=== PATIENT | male | born 1985 | race Hispanic/Latino ===

== ENCOUNTER 2018-08-10 05:00 | Inpatient (IN) ==
[2018-08-10] MEDS ORDERED: ONDANSETRON 4 MG/2 ML VIAL IVP ONE ×2 (05:17→07:12)
[2018-08-10] MEDS ORDERED: Sodium Chloride 0.9% 1,000 ML PRIMARY IV ONE ×2 (05:17→07:31)
[2018-08-10] MEDS ORDERED: MORPHINE SULFATE 4 MG/1 ML IVP ONE ×2 (05:17→07:12)
--- NOTE | 2018-08-10 05:18 | PDOC ---
Abdomen/Flank HPI - General Chief Complaint: Abdomen Pain Stated Complaint: left lower abdominal pain Date Seen by Provider: 08/10/18 Time Seen by Provider: 05:11 Source: POSITIVE: Patient, Spouse Exam Limitations: POSITIVE: No limitations Nurse's Notes Reviewed & Considered: Yes - History of Present Illness Initial Comments: This is a well-developed, well-nourished, 32-year-old male, complaining of left lower quadrant abdominal pain. Patient developed left lower abdominal quadrant pain that has escalated and become significantly worse this morning with associated dysuria and pain in his left abdomen. He denies any headache, no sore throat, no runny nose, no chest pain or shortness of breath, no cough, no nausea vomiting or diarrhea, no hematuria, no rashes, no myalgias or arthralgias. Body Location Affected: REPORTS: Abdomen Timing: REPORTS: Gradual, Getting Worse Duration: <24 hours Severity: Severe Quality: REPORTS: "Pain" Abdominal Pain Onset Location: REPORTS: LLQ Abdominal Pain Radiation: REPORTS: LLQ Context: REPORTS: None Modifying Factors: improves with: Nothing Similar Symptoms Previously: No Recent Care Received: REPORTS: Denies Any Prior Injuries Related to Current Complaint?: No - Patient Home Medications Home Medications: Home Medications NK 08/10/18 - Patient Allergies Allergies/Adverse Reactions: Allergies Allergy/AdvReac Type Severity Reaction Status Date / Time No Known Allergies Allergy Verified 08/10/18 05:07 Past Medical History - heen HEENT History: Denies History Cardiovascular History: Denies History Respiratory History: Denies History Gastrointestinal History: Denies History Genitourinary History: Denies History Endocrine History: Denies History Musculoskeletal History: Denies History Neurological History: Denies History Blood Disorders: Denies History Psychiatric History: Denies History History of Sexually Transmitted Diseases: No Male Reproductive History: Denies History Cancer History: Denies History In Past Year Been Physically Harmed or Verbally Threatened: No History of MDRO: No History of Other Communicable Diseases: No Tobacco Use: Current Every Day Smoker In the Past 12 Months, Have Used or Abuse Any Substance: None Previous Surgical History: No Significant Family History: No pertinent family hx ROS - Limitations ROS Limitations: No Limitations Constitution: REPORTS: Denies Symptoms Cardiovascular: REPORTS: Denies Cardiac Symptoms Respiratory: REPORTS: Denies Resp Symptoms Neurological: REPORTS: Denies Neuro Symptoms Gastrointestinal: REPORTS: Abdominal Pain Endocrine: REPORTS: Denies Symptoms Musculoskeletal: REPORTS: Denies MS Symptoms Genitourinary: REPORTS: Dysuria Eyes: REPORTS: Denies Symptoms ENT: REPORTS: Denies Symptoms Skin: REPORTS: Denies Skin Symptoms Lympathic: REPORTS: Denies Lympathic Symptoms Immunologic: POSITIVE: Denies Symptoms Psychiatric: POSITIVE: Denies Psych Symptoms Abdominal/Flank Pain PE - General Appearance General Appearance: POSITIVE: Alert, Cooperative, No Evidence of Trauma, Mild Distress - HEENT HEENT: POSITIVE: Head Inspection Nml, Eyes Inspection Nml, Ears Inspection Nml, Nose Inspection Nml, Oral/Dental Inspect. Nml, Pharynx Inspect. Nml, PERRL, EOMI - Neck Neck: POSITIVE: Normal Inspection, No Apparent Injury - Respiratory Respiratory: POSITIVE: No Respiratory Distress, Breath Sounds Normal, Chest Non- Tender - Cardiovascular Cardiovascular: POSITIVE: Regular Rate and Rhythm, Heart Sounds Normal, Equal Pulses, Strong Pulses Peripheral Pulses: Radial (L): 4+ - Chest Chest: POSITIVE: Non Tender - Abdomen Abdomen: Soft: (All Quadrants), Normal Bowel Sounds: (All Quadrants), Denies Tenderness: (RLQ), (LUQ), (RUQ), No Splenomegaly: (All Quadrants), No Hepatomegaly: (All Quadrants), No Guarding: (RLQ), (LUQ), (RUQ), No Rebound: (All Quadrants), No Palpable Pulse: (All Quadrants), No Palpabale Mass: (All Quadrants), No Distention: (All Quadrants), No Rigidity: (All Quadrants), Tenderness Noted: (LLQ), Guarding: (LLQ) - Back Back: POSITIVE: Normal Inspection - Skin Skin: POSITIVE: Intact, Normal For Race, Warm, Dry, No Rash - Extremities Extremity: Non-Tender: (All Extremities), Normal ROM: (All Extremities), Normal Inspection: (All Extremities), Pelvis Stable: (All Extremities) - Neurological Neurological: POSITIVE: Affect Apporpriate, Oriented X3, Motor Normal, Sensation Normal - Psychological Psychiatric: POSITIVE: Affect Appropriate, Mood Appropriate Abdomen Progress - Results Reviewed by me Xrays/CTs/US Reviewed by me: Yes Discussed with Radiologist: Yes Lab Results Reviewed by Me: Yes CBC and BMP: 08/10/18 05:10 08/10/18 05:10 - Patient's Progress Pain Medication Addressed: POSITIVE: Yes Re-examine Time: 07:13 Status: POSITIVE: Improved MDM / ED Course: Patient was evaluated, an IV started, blood drawn and sent to the lab for studies, CT examination of his abdomen was obtained. Findings: CBC shows white count of 14.16 with hemoglobin and hematocrit and platelets being normal. CMP is normal. CRP is elevated at 7.6. ESR is normal at 10. Magnesium is normal at 1.9. Gamma GT is normal at 48. Urinalysis is negative. Amylase is [address] and lip[address] is 44. CT scan shows sigmoid diverticulitis with microperforation and severe inflammatory changes there is a small amount of free fluid in the pelvis. Assessment: Diverticulitis with microperforation Plan: Patient being admitted by Dr. Mccauley, the on-call surgeon who will see the patient on the floor. He is started on ertapenem with morphine and Zofran. I have put holding orders on him for the 4 to be nothing by mouth, morphine 4 mg every 30 minutes when necessary to 3 doses and Zofran 4 mg every 30 minutes when necessary to 3 doses. For this to contact the provider if he has systolic pressures less than 110 or greater than 160. - Consult Consult (If Yes, Name of Consulting MD & Time Called): Yes (DR. Mccauley) Consulting MD will see pt:: [place] [facility] [place] Counseled: POSITIVE: Patient, Family, RE: Lab Results, RE: Radiology Results, RE: DX, RE: Need for F/U Patient Care Time - Estimated PCT Patient Care Time (In Minutes): 45 Vital Signs - VS Reviewed Vital Signs Reviewed: Yes Discharge Clinical Impression: Abdominal pain, Perforation of sigmoid colon due to diverticulitis Discharge Disposition: Admit to Inpatient Condition: Stable Patient Instructions Given at Discharge: Diverticulitis (ED), Acute Abdominal Pain (ED) Follow Up With: NONE,NONE [Primary Care Provider] - Date Decision to Admit to Inpatient: 08/10/18 Time Decision to Admit to Inpatient: 07:17
[2018-08-10 05:22] LABS: BASOPHILS # (AUTO) 0.02 10*3/UL; BASOPHILS % (AUTO) 0.1 % (0-1); EOSINOPHILS # (AUTO) 0.09 10*3/UL; EOSINOPHILS % (AUTO) 0.6 % (0-8); Hematocrit [HCT] 46.2 % (42.0-52.0); Hemoglobin [HGB] 15.8 g/dL (14.0-18.0); LYMPHOCYTES # (AUTO) 2.73 10*3/uL; MEAN CORPUSCULAR HEMOGLOBIN 30.4 PG (27-31); MEAN CORPUSCULAR HGB CONC 34.2 g/dL (33-37); MEAN CORPUSCULAR VOLUME 88.8 FL (80-90); MEAN PLATELET VOLUME 10.3 FL (7.4-12.2); MONOCYTES # (AUTO) 0.94 10*3/UL (0.3-0.8); MONOCYTES % (AUTO) 6.6 % (5-15); NEUTROPHILS # (AUTO) 10.36 10*3/UL; NEUTROPHILS % (AUTO) 73.3 % (50-80)
[2018-08-10 05:26] LABS: PLATELET MORPHOLOGY COMMENT NORMAL MORPHOLOGY (NORM); RBC MORPHOLOGY COMMENT NORMAL MORPHOLOGY (NORM); WBC MORPHOLOGY COMMENT NORMAL MORPHOLOGY (NORM)
[2018-08-10 05:31] LABS: BLOOD UREA NITROGEN 12 mg/dL (7-22); BUN/CREATININE RATIO 13.33 (6-20); GAMMA GLUTAMYL TRANSPEPTIDASE 48 IU/L (8-78); LIPASE 44 IU/L (23-300); SERUM ALBUMIN 4.7 g/dL (3.5-4.8)
[2018-08-10 06:03] LABS: Erythrocyte Sediment Rate 10 MM/HR (0-15)
[2018-08-10 06:44] LABS: BILIRUBIN,URINE NEGATIVE (NEG); CLARITY,URINE CLEAR (CLEAR); COLOR,URINE YELLOW (Y); GLUCOSE, URINE (UA) NEGATIVE (NEG); OCCULT BLOOD,URINE NEGATIVE (NEG); PH,URINE 5.5 (5.0-8.5); PROTEIN,URINE NEGATIVE (NEG); UROBILINOGEN,URINE 0.2 EU/dL (0.2)
[2018-08-10 06:46] LABS: URINE SAMPLE TYPE CLEAN CATCH URINE
--- NOTE | 2018-08-10 06:49 | DI ---
EXAM: CT Abdomen and Pelvis With Intravenous Contrast CLINICAL HISTORY: LLQ pain TECHNIQUE: Axial computed tomography images of the abdomen and pelvis with intravenous contrast. COMPARISON: No relevant prior studies available. FINDINGS: Lung bases: Unremarkable. No mass. No consolidation. ABDOMEN: Liver: Unremarkable. No mass. Gallbladder and bile ducts: Unremarkable. No calcified stones. No ductal dilation. Pancreas: Unremarkable. No mass. No ductal dilation. Spleen: Unremarkable. No splenomegaly. Adrenals: Unremarkable. No mass. Kidneys and ureters: Unremarkable. No solid mass. No hydronephrosis. Stomach and bowel: Severe wall thickening and inflammatory changes of the proximal sigmoid colon with associated diverticula and adjacent mesenteric edema and stranding. Punctate bubbles of extraluminal gas noted at the site of inflammation. PELVIS: Appendix: Normal appendix. Bladder: Unremarkable. No mass. Reproductive: Unremarkable as visualized. ABDOMEN and PELVIS: Intraperitoneal space: Small amount of free fluid. No discrete fluid collection. Bones/joints: No acute fracture. No dislocation. Soft tissues: Unremarkable. Vasculature: Unremarkable. Lymph nodes: Unremarkable. No enlarged lymph nodes. IMPRESSION: Acute complicated sigmoid diverticulitis with microperforation and severe adjacent inflammatory changes, at risk for peritonitis. Small amount of free fluid. No drainable fluid collections. Recommend short-term followup to ensure resolution and exclude underlying occult mass. <MYCVCSECTION> [employer] 08/10/18 06:55 Verify Receipt Verified receipt with STEVE Barrett, will be given to Dr. Jluis Shannon on 08/10 06:55 (-06:00)
[2018-08-10] MEDS ORDERED: Ertapenem Inj 1 GM in Sodium Chloride 0.9% 100 ML IV ONE (07:08)
--- NOTE | 2018-08-10 08:37 | PDOC ---
HPI - History of Present Illness Date of Service: 08/10/18 Time of Service: 08:32 Chief Complaint: Abdominal pain History of Present Illness: This is a 32-year-old gentleman who speaks little Mosotho. Information obtained through interpreter translator. Patient started having pain yesterday the day before coming in the hospital. He states is been left lower quadrant. His last bowel movement was prior to coming in the hospital. Patient states that he has no diarrhea or constipation. No blood in the stools. Patient denies any fevers. He has no nausea vomiting. Little pain with urination but denies passing air. He's never had pain like this before. Patient's workup in the ER included a CBC which is 14,000. He is afebrile. CT scan shows a perforated colon from diverticulitis. The inflammation is contained within the mesentery of the colon. There is no abscess seen on CT scan. Past Medical History Medical History: Denies any medical problems Tobacco Use: Current Every Day Smoker Do you dip or chew tobacco: No In the Past 12 Months, Have Used or Abuse Any of the Following Substance: None Medication / Allergies Home Medications: Home Medications Medication Instructions Recorded Confirmed NK 08/10/18 08/10/18 Allergies/Adverse Reactions: Allergies Allergy/AdvReac Type Severity Reaction Status Date / Time No Known Allergies Allergy Verified 08/10/18 05:07 Review of Systems - Review of Systems All Systems: Reviewed & No Additional Complaints Except as Stated Exam - Vitals Vital Signs: Vital Signs Temperature 97.4 F Temperature Source Temporal Artery Scan Pulse Rate [Pulse Oximeter] 93 Respiratory Rate 20 Blood Pressure [Left Arm] 144/98 Pulse Ox 95 Oxygen Delivery Method Room Air Height 5 ft 7 in Weight 190 lb - General General Appearance: No Acute Distress, Cooperative - ENT ENT Exam: POSITIVE: Normal Exam - Neck Neck Exam: Normal Inspection, Full ROM - Respiratory Respiratory Exam: POSITIVE: Clear to Auscultation - Bilaterally - Cardiovascular Cardiovascular Exam: POSITIVE: No Murmur - GI/Abdominal GI/Abdominal Exam: POSITIVE: Normal Bowel Sounds, Non Distended, Hepatomegaly, No Splenomegaly Additional GI/Abdominal Exam Details: Patient is have some left lower quadrant tenderness with a little bit of rebound rigidity Results - Labs CBC and BMP: 08/10/18 05:10 08/10/18 05:10 Assessment and Plan - Patient Problems (1) Perforation of sigmoid colon due to diverticulitis Current Visit: Yes Status: Acute Code(s): K57.20 - Diverticulitis of large intestine with perforation and abscess without bleeding - Assessment / Plan Additional Assessment/Plan Details: At the present times patient is afebrile and his white count is 14,000 I do think he can be managed nonoperatively with antibiotics. He is given his first dose of Invanz in the emergency department. He will be on Invanz every 24 hours. He'll be initially nothing by mouth. But maybe advance eventually to a low residual diet. Hopefully his from inflammation will quiet down within 24-48 hours. He can then be switched over to oral antibiotics. I discussed the risk of nonoperative management which include gone on to develop peritonitis and/or getting an abscess. I explained the surgery for peritonitis and also how we treat abscess disease days. He understands this he is agreed for antibiotic therapy
[2018-08-10] MEDS ORDERED: ONDANSETRON 4 MG/2 ML VIAL IVP PRN (09:35)
[2018-08-10] MEDS ORDERED: LIDOCAINE W/ SODIUM BICARB 0.5 ML SYR SUBD PRN (09:35)
[2018-08-10] MEDS: NICOTINE 21 MG /DAY PATCH TRANSDERM SCH (11:59)
[2018-08-10] MEDS: MORPHINE SULFATE 2 MG/1 ML IVP PRN (11:59)
[2018-08-10] MEDS: FAMOTIDINE 20 MG/2 ML VIAL IVP SCH ×2 (12:01→20:03)
[2018-08-10] MEDS: D5-1/2NS + 20mEq KCL 1,000 ML PRIMARY IV SCH ×2 (12:02→20:03)
[2018-08-10] MEDS ORDERED: Acetaminophen 1000mg Inj 1,000 MG/100 ML VIAL IV PRN (20:12)
[2018-08-11] MEDS: D5-1/2NS + 20mEq KCL 1,000 ML PRIMARY IV SCH ×2 (05:00→11:06)
[2018-08-11 05:12] LABS: BASOPHILS # (AUTO) 0.02 10*3/UL; BASOPHILS % (AUTO) 0.2 % (0-1); EOSINOPHILS # (AUTO) 0.15 10*3/UL; EOSINOPHILS % (AUTO) 1.8 % (0-8); Hemoglobin [HGB] 13.8 g/dL (14.0-18.0); LYMPHOCYTES # (AUTO) 1.61 10*3/uL; MEAN CORPUSCULAR HEMOGLOBIN 30.7 PG (27-31); MEAN CORPUSCULAR HGB CONC 33.7 g/dL (33-37); MEAN CORPUSCULAR VOLUME 91.1 FL (80-90); MEAN PLATELET VOLUME 10.3 FL (7.4-12.2); MONOCYTES # (AUTO) 0.57 10*3/UL (0.3-0.8); MONOCYTES % (AUTO) 6.7 % (5-15); NEUTROPHILS # (AUTO) 6.13 10*3/UL; NEUTROPHILS % (AUTO) 72.2 % (50-80)
[2018-08-11 05:25] LABS: PLATELET MORPHOLOGY COMMENT NORMAL MORPHOLOGY (NORM); RBC MORPHOLOGY COMMENT NORMAL MORPHOLOGY (NORM); WBC MORPHOLOGY COMMENT NORMAL MORPHOLOGY (NORM)
[2018-08-11 05:26] LABS: BLOOD UREA NITROGEN 9 mg/dL (7-22); BUN/CREATININE RATIO 11.25 (6-20)
[2018-08-11] MEDS: MORPHINE SULFATE 2 MG/1 ML IVP PRN (07:31)
[2018-08-11 08:52] VITALS: BP 100/59; RESP 20; TEMP 97; O2SAT 93
[2018-08-11] MEDS: NICOTINE 21 MG /DAY PATCH TRANSDERM SCH (08:53)
[2018-08-11] MEDS: FAMOTIDINE 20 MG/2 ML VIAL IVP SCH (08:53)
[2018-08-11] MEDS ORDERED: Patch Removal PATCH TRANSDERM SCH (09:00)
--- NOTE | 2018-08-11 11:13 | DCSUMMARY ---
Discharge Summary Admit Date: 08/10/18 Discharge Date: 08/11/18 Discharge Diagnosis: Diverticulitis Primary Surgery and Date: Diverticulitis Hospital Course: Patient is admitted the hospital for IV antibiotics his diverticulitis. He had an elevated white count. CT scan showed a perforated diverticulitis. The contamination was contained within the mesentery of the sigmoid colon. Today the patient had almost no abdominal pain. White count had returned to normal and he is afebrile. We will having the discharge is his antibiotics. His perforated: I do want him on IV AmBisome 5 days. We can arrange this as outpatient antibiotic therapy. Exam - Vitals Vital Signs: Vital Signs Temperature 97 F Temperature Source Temporal Artery Scan Pulse Rate [Pulse Oximeter] 86 Respiratory Rate 20 Blood Pressure [Left Arm] 100/59 Pulse Ox 93 Oxygen Flow Rate 2 Oxygen Delivery Method Room Air Height 5 ft 7 in Weight 185 lb 4 oz - GI/Abdominal GI/Abdominal Exam: POSITIVE: Non Tender, Non Distended, Soft Patient Problems - Patient Problem List (1) Perforation of sigmoid colon due to diverticulitis Current Visit: Yes Status: Acute Code(s): K57.20 - Diverticulitis of large intestine with perforation and abscess without bleeding Category: Medical
[2018-08-11] MEDS ORDERED: Ertapenem Inj 1 GM in Sodium Chloride 0.9% 100 ML IV SCH (11:15)
== END 2018-08-11 12:34 | disposition home or self-care (01) | DRG 392 ==
LOC: ER 05:00 → MED/SURG 09:23
PROVIDERS: ADMIT Surgery; ATTEND Surgery